=== PATIENT | female | born 1975 ===

== ENCOUNTER 2023-10-04 05:15 | Outpatient (CLI) | payer OTHER, SELFPAY ==
[2023-10-04 07:33] LABS: Abs Immature Grans 0.04 10^3/uL (0.0-0.06); Absolute Eosinophil Count 0.12 10^3/uL (0.0-0.7); Absolute Lymphocyte Count 2.48 10^3/uL (1.2-3.4); Absolute Monocyte Count 0.77 10^3/uL (0.1-0.8); Absolute Neutrophil Count 6.58 10^3/uL (1.2-6.7); Eosinophils % 1.2 %; HGB 14.2 g/dL (11.2-15.7); Immature Grans % 0.4 %; Lymphocytes % 24.6 %; MCH 31.7 pg (27.0-33.0); MCHC 34.6 % (32.0-36.0); MCV 92 fL (80-95); MPV 10.3 fL (8.0-11.0); Monocytes % 7.6 %; Neutrophils % 65.2 %; Platelet Count 227 10^3/uL (130-400); RBC 4.48 10^6/uL (3.93-5.22); RDW 11.9 % (11.7-14.6); RDW-SD 39.5 fL; WBC 10.09 10^3/uL (4.4-10.8)
[2023-10-04 07:53] LABS: Hemoglobin A1C 5.8 % (<5.7)
[2023-10-04 08:13] LABS: ALT 42 U/L (14-59); AST 15 U/L (15-37); Albumin 4.3 g/dL (3.4-5.0); Alkaline Phosphatase 59 U/L (46-116); Anion Gap 10.5 mmol/L (3-11); BUN 11 mg/dL (7-18); Bilirubin, Total 0.4 mg/dL (0.2-1.0); CO2 27.5 mmol/L (21.0-32.0); CREATININE 0.7 mg/dL (0.55-1.02); Calculated LDL 125 mg/dL (<100); Chloride 100 mmol/L (98-107); Cholesterol 196 mg/dL (<200); Estimated GFR 106.62 (mL/min/1.73m2); Glucose 99 mg/dL (74-106); HDL Cholesterol 46 mg/dL (40-60); Potassium 3.9 mmol/L (3.5-5.1); Sodium 138 mmol/L (136-145); TSH (W/Ref FT4) 3.57 uIU/mL (0.36-3.74); Total Protein 8.7 g/dL (6.4-8.2); Triglyceride 125 mg/dL (<150)
== END 2023-10-04 05:16 | disposition home or self-care (01) ==
PROVIDERS: Visit Provider Family Medicine
DX: Z00.00 Encounter for general adult medical examination without abnormal findings (principal)
CPT/HCPCS: 36415; 80053; 80061; 83036; 84443; 85025

== ENCOUNTER 2023-10-12 14:59 | Outpatient (REF) | payer OTHER, SELFPAY ==
[2023-10-12 23:15] LABS: Vitamin D 25 Total 20.4 ng/mL (30-100)
[2023-10-12 23:18] LABS: Magnesium 1.9 mg/dL (1.8-2.4); Vitamin B12 216 pg/mL (193-986)
== END 2023-10-12 15:00 | disposition home or self-care (01) ==
LOC: LBO 14:59
PROVIDERS: Visit Provider Registered Nurse
DX: R53.83 Other fatigue (principal); K21.9 Gastro-esophageal reflux disease without esophagitis; Z12.11 Encounter for screening for malignant neoplasm of colon
CPT/HCPCS: 82306; 82607; 83735

== ENCOUNTER 2023-10-12 20:47 | Outpatient (REF) | payer OTHER, SELFPAY ==
[2023-10-15 10:27] LABS: Fecal Immunochemical Test Negative (Negative)
== END 2023-10-12 20:48 | disposition home or self-care (01) ==
LOC: LBN 20:47
PROVIDERS: Visit Provider Registered Nurse
DX: Z12.11 Encounter for screening for malignant neoplasm of colon (principal)
CPT/HCPCS: 82274

== ENCOUNTER 2024-06-15 07:30 | Outpatient (CLI) | payer OTHER, SELFPAY ==
[2024-06-15 08:03] LABS: TSH (W/Ref FT4) 7.63 uIU/mL (0.36-3.74)
== END 2024-06-15 07:31 | disposition home or self-care (01) ==
LOC: LBO 07:31
PROVIDERS: Visit Provider Registered Nurse
DX: F41.8 Other specified anxiety disorders (principal); L65.9 Nonscarring hair loss, unspecified
CPT/HCPCS: 36415; 84439; 84443

== ENCOUNTER 2024-07-20 13:55 | Outpatient (CLI) | payer OTHER, SELFPAY ==
[2024-07-20 14:39] LABS: Abs Immature Grans 0.05 10^3/uL (0.0-0.06); Absolute Basophil Count 0.06 10^3/uL (0.0-0.2); Absolute Eosinophil Count 0.12 10^3/uL (0.0-0.7); Absolute Lymphocyte Count 1.49 10^3/uL (1.2-3.4); Absolute Monocyte Count 0.72 10^3/uL (0.1-0.8); Absolute Neutrophil Count 7.63 10^3/uL (1.2-6.7); Basophils % 0.6 %; Eosinophils % 1.2 %; HCT 41.4 % (36.0-46.0); HGB 14.3 g/dL (11.2-15.7); Immature Grans % 0.5 %; Lymphocytes % 14.8 %; MCH 31.4 pg (27.0-33.0); MCHC 34.5 % (32.0-36.0); MCV 91 fL (80-95); MPV 10.4 fL (8.0-11.0); Monocytes % 7.1 %; Neutrophils % 75.8 %; Platelet Count 260 10^3/uL (130-400); RBC 4.55 10^6/uL (3.93-5.22); RDW 11.8 % (11.7-14.6); RDW-SD 39.2 fL; WBC 10.07 10^3/uL (4.4-10.8)
[2024-07-20 15:32] LABS: Hemoglobin A1C 5.7 % (<5.7)
[2024-07-20 15:56] LABS: Iron 85 ug/dL (50-170)
[2024-07-20 16:05] LABS: ALT 28 U/L (14-59); AST 15 U/L (15-37); Albumin 3.9 g/dL (3.4-5.0); Alkaline Phosphatase 63 U/L (46-116); Anion Gap 10.7 mmol/L (3-11); BUN 8 mg/dL (7-18); Bilirubin, Total 0.22 mg/dL (0.2-1.0); CO2 24.3 mmol/L (21.0-32.0); CREATININE 0.7 mg/dL (0.55-1.02); Calcium 9.5 mg/dL (8.5-10.1); Calculated LDL 95 mg/dL (<100); Chloride 103 mmol/L (98-107); Cholesterol 167 mg/dL (<200); Estimated GFR 105.95 (mL/min/1.73m2); Glucose 98 mg/dL (74-106); HDL Cholesterol 44 mg/dL (40-60); Potassium 3.9 mmol/L (3.5-5.1); Sodium 138 mmol/L (136-145); TSH 1.87 uIU/mL (0.36-3.74); Total Protein 8.1 g/dL (6.4-8.2); Triglyceride 143 mg/dL (<150); Vitamin B12 187 pg/mL (193-986); Vitamin D 25 Total 14.4 ng/mL (30-100)
[2024-07-20 22:26] LABS: T3, Total 153 ng/dL (97-169)
== END 2024-07-20 13:56 | disposition home or self-care (01) ==
LOC: LBO 13:56
PROVIDERS: Visit Provider Registered Nurse
DX: L65.9 Nonscarring hair loss, unspecified (principal); E55.9 Vitamin D deficiency, unspecified; R73.03 Prediabetes; E78.5 Hyperlipidemia, unspecified; R79.89 Other specified abnormal findings of blood chemistry
CPT/HCPCS: 36415; 80053; 80061; 82306; 82607; 83036; 83540; 84439; 84443; 84480; 85025